=== PATIENT | male | born 1960 | race African-American/Black ===

== ENCOUNTER 2017-10-31 00:32 | Emergency (ER) | payer MEDICAID ==
[~2017-10-31] VITALS: Ht 182.9 cm; Wt 136.0 kg
[~2017-10-31 00:32] MED LIST: ACET-3161 PO; AMLO10TA80 PO; ASPI-1159 PO; ATOR20TA65 PO; CLOP75TA33 PO; LISI10TA5 PO; METO-539 PO; NITR0.4T49 SL
[2017-10-31] MEDS ORDERED: IBUPROFEN 600MG TABLET PO ONE (07:15)
[2017-10-31 11:47] VITALS: BP 125/72
== END 2017-10-31 12:14 | disposition home or self-care (01) ==
LOC: ER 00:32
DX: S93.402A Sprain of unspecified ligament of left ankle, initial encounter (principal); W01.0XXA Fall on same level from slipping, tripping and stumbling without subsequent striking against object, initial encounter; Y93.02 Activity, running; Y92.9 Unspecified place or not applicable; E78.00 Pure hypercholesterolemia, unspecified; I10 Essential (primary) hypertension; Z88.0 Allergy status to penicillin; Z79.82 Long term (current) use of aspirin
CPT/HCPCS: 73590; 99284

== ENCOUNTER 2018-07-28 22:58 | Inpatient (IN) | payer MEDICAID ==
[~2018-07-28] VITALS: Ht 182.9 cm; Wt 132.6 kg
[~2018-07-28 22:58] MED LIST changes: +HEPARIN SODIUM 1,000 UNIT/1ML VIAL IV ONE
[2018-07-29] MEDS ORDERED: NITROGLYCERIN 0.4MG TABLET SL SL PRN
[2018-07-29] MEDS ORDERED: ASPIRIN 81MG TABLET PO ONE
[2018-07-29] MEDS ORDERED: CLONIDINE 0.2MG TABLET PO ONE
[2018-07-29 00:50] LABS: EOSINOPHILS % 1.5 % (0.0-5.0); HEMOGLOBIN. 14.6 g/dL (14.0-18.0); LYMPHOCYTES % 48.7 % (20.0-50.0); MEAN CORPUSCULAR HEMOGLOBIN 28.7 pg (28.0-32.0); MEAN CORPUSCULAR VOLUME 86.5 fL (80.0-94.0); MONOCYTES % 7.4 % (2.0-8.0); NEUTROPHILS % 41.4 % (40.0-76.0); PLATELET 251 x1000/uL (130-400); RED BLOOD CELL COUNT 5.08 mill/uL (4.7-6.1)
[2018-07-29 01:06] LABS: D-DIMER 0.37 mg/L FEU (<0.50); PARTIAL THROMBOPLASTIN TIME 24.8 sec (23.4-31.0); PROTHROMBIN TIME 9.8 sec (9.1-11.1)
[2018-07-29 01:08] LABS: CHLORIDE 105 mEq/L (98-107)
[2018-07-29 01:12] LABS: ETHANOL BLOOD < 10 mg/dL
[2018-07-29] MEDS ORDERED: HYDRALAZINE 20MG/ML VIAL IV ONE (01:45)
[2018-07-29] MEDS ORDERED: ENOXAPARIN 150MG/ML SYR SUBCUT ONE (01:45)
[2018-07-29] MEDS ORDERED: SODIUM BICARBONATE 8.4% 1 MEQ/ML 50ML SYR IV ONE (01:45)
[2018-07-29 10:14] VITALS: BP 173/100
[2018-07-29 10:24] VITALS: BP 173/100
[2018-07-29 12:00] VITALS: BP 142/90
[2018-07-29] MEDS ORDERED: ONDANSETRON HCL 4MG/2ML INJ IV PRN (12:45)
[2018-07-29] MEDS ORDERED: CLONIDINE 0.1MG TABLET PO PRN (12:45)
[2018-07-29] MEDS ORDERED: LORAZEPAM 0.5MG TABLET PO PRN (12:45)
[2018-07-29] MEDS ORDERED: DOCUSATE SODIUM 100MG CAPSULE PO PRN (12:45)
[2018-07-29] MEDS ORDERED: IPRATROPIUM/ALBUTEROL 0.5-3(2.5)MG/3ML NEB INH PRN (12:45)
[2018-07-29] MEDS ORDERED: ASPIRIN 81MG TABLET PO SCH (12:45)
[2018-07-29] MEDS: LISINOPRIL 10MG TABLET PO SCH (13:38)
[2018-07-29] MEDS: CLOPIDOGREL 75MG TABLET PO SCH (13:38)
[2018-07-29] MEDS: AMLODIPINE 10MG TABLET PO SCH (13:38)
[2018-07-29] MEDS ORDERED: CLONIDINE 0.2MG TABLET PO PRN (14:15)
[2018-07-29 16:00] VITALS: BP 166/83
[2018-07-29] MEDS ORDERED: SODIUM POLYSTYRENE SULFONATE 15 G/60 ML BOT PO NR (16:00)
[2018-07-29 16:30] VITALS: BP 145/83
[2018-07-29 20:00] VITALS: BP 143/78
[2018-07-29] MEDS: ACETAMINOPHEN 325MG TABLET PO PRN (21:13)
[2018-07-29] MEDS: ATORVASTATIN CALCIUM 20MG TABLET PO SCH (21:13)
[2018-07-30] VITALS: BP 149/86
[2018-07-30 04:00] VITALS: BP 135/88
[2018-07-30] MEDS: ACETAMINOPHEN 325MG TABLET PO PRN (05:46)
[2018-07-30 05:57] LABS: BASOPHILS % 0.7 % (0.0-2.0); EOSINOPHILS % 1.4 % (0.0-5.0); HEMATOCRIT. 44.9 % (42.0-52.0); LYMPHOCYTES % 51.2 % (20.0-50.0); MEAN CORPUSCULAR HEMOGLOBIN 28.7 pg (28.0-32.0); MEAN CORPUSCULAR VOLUME 85.9 fL (80.0-94.0); MEAN PLATELET VOLUME 8.5 fl (7.4-10.4); MONOCYTES % 7.6 % (2.0-8.0); NEUTROPHILS % 39.1 % (40.0-76.0); PLATELET 254 x1000/uL (130-400); RED BLOOD CELL COUNT 5.22 mill/uL (4.7-6.1); RED CELL DISTRIBUTION WIDTH 14.2 % (11.6-14.6)
[2018-07-30 06:19] LABS: CHLORIDE 105 mEq/L (98-107)
[2018-07-30 06:35] LABS: PHOSPHORUS 3.8 mg/dL (2.5-4.9)
[2018-07-30 06:38] LABS: CREATINE KINASE 258 IU/L (39-308)
[2018-07-30 08:00] VITALS: BP 121/61
[2018-07-30] MEDS: CLOPIDOGREL 75MG TABLET PO SCH (08:55)
[2018-07-30] MEDS: LISINOPRIL 10MG TABLET PO SCH (08:55)
[2018-07-30] MEDS: ASPIRIN 81MG EC TABLET PO SCH (08:55)
[2018-07-30] MEDS: AMLODIPINE 10MG TABLET PO SCH (08:55)
[2018-07-30] MEDS ORDERED: REGADENOSON 0.4 MG/5 ML IV ONE (11:45)
[2018-07-30 12:00] VITALS: BP 115/71
[2018-07-30 16:00] VITALS: BP 114/57
[2018-07-30 20:00] VITALS: BP 132/67
[2018-07-30] MEDS: ATORVASTATIN CALCIUM 20MG TABLET PO SCH (20:29)
[2018-07-31] VITALS (8 sets, daily range): BP systolic 129–177; BP diastolic 68–97
[2018-07-31] LABS: CLARITY URINE CLEAR (CLEAR); COLOR URINE YELLOW (YELLOW); KETONES URINE NEGATIVE (NEGATIVE); LEUKOCYTE ESTERASE URINE NEGATIVE (NEGATIVE); NITRITE URINE NEGATIVE (NEGATIVE); OCCULT BLOOD URINE NEGATIVE (NEGATIVE); PH URINE 5.5 (4.5-8.0); PROTEIN URINE NEGATIVE (NEGATIVE); SPECIFIC GRAVITY URINE 1.013 (1.005-1.030); UROBILINOGEN URINE 0.2 E.U./dL (0.2-1.0)
[2018-07-31] MEDS: HYDROCODONE/ACETAMINOPHEN 5/325MG TABLET PO PRN ×2 (05:04→14:45)
[2018-07-31 08:07] LABS: BASOPHILS % 0.5 % (0.0-2.0); EOSINOPHILS % 1.3 % (0.0-5.0); HEMATOCRIT. 43.8 % (42.0-52.0); HEMOGLOBIN. 14.4 g/dL (14.0-18.0); LYMPHOCYTES % 44.4 % (20.0-50.0); MEAN CORPUSCULAR HEMOGLOBIN 28.5 pg (28.0-32.0); MEAN CORPUSCULAR VOLUME 86.7 fL (80.0-94.0); MEAN PLATELET VOLUME 8.6 fl (7.4-10.4); MONOCYTES % 7.8 % (2.0-8.0); PLATELET 246 x1000/uL (130-400); RED BLOOD CELL COUNT 5.06 mill/uL (4.7-6.1); RED CELL DISTRIBUTION WIDTH 14.4 % (11.6-14.6)
[2018-07-31 08:17] LABS: CHLORIDE 104 mEq/L (98-107)
[2018-07-31] MEDS ORDERED: REGADENOSON 0.4 MG/5 ML IV ONE (08:38)
[2018-07-31] MEDS: ASPIRIN 81MG EC TABLET PO SCH (10:02)
[2018-07-31] MEDS: LISINOPRIL 10MG TABLET PO SCH ×2 (10:03→21:07)
[2018-07-31] MEDS: AMLODIPINE 10MG TABLET PO SCH (10:03)
[2018-07-31] MEDS: CLOPIDOGREL 75MG TABLET PO SCH (10:07)
[2018-07-31] MEDS ORDERED: ENOXAPARIN 150MG/ML SYR SUBCUT SCH (11:30)
[2018-07-31] MEDS: CARVEDILOL 6.25 MG TABLET PO SCH ×2 (13:21→21:07)
[2018-07-31] MEDS ORDERED: ATORVASTATIN CALCIUM 20MG TABLET PO SCH (21:00)
[2018-07-31] MEDS: ATORVASTATIN CALCIUM 40MG TABLET PO SCH (21:07)
[2018-08-01] VITALS (9 sets, daily range): BP systolic 124–156; BP diastolic 71–90
[2018-08-01] MEDS: HYDROCODONE/ACETAMINOPHEN 5/325MG TABLET PO PRN (00:52)
[2018-08-01 06:53] LABS: BASOPHILS % 0.5 % (0.0-2.0); EOSINOPHILS % 0.9 % (0.0-5.0); HEMATOCRIT. 44.1 % (42.0-52.0); HEMOGLOBIN. 14.7 g/dL (14.0-18.0); LYMPHOCYTES % 44.5 % (20.0-50.0); MEAN CORPUSCULAR HEMOGLOBIN 28.9 pg (28.0-32.0); MEAN CORPUSCULAR VOLUME 86.7 fL (80.0-94.0); MEAN PLATELET VOLUME 8.3 fl (7.4-10.4); MONOCYTES % 9.9 % (2.0-8.0); NEUTROPHILS % 44.2 % (40.0-76.0); PLATELET 250 x1000/uL (130-400); RED BLOOD CELL COUNT 5.08 mill/uL (4.7-6.1); RED CELL DISTRIBUTION WIDTH 14.4 % (11.6-14.6)
[2018-08-01] MEDS: CLOPIDOGREL 75MG TABLET PO SCH (09:00)
[2018-08-01] MEDS: ASPIRIN 81MG EC TABLET PO SCH (09:00)
[2018-08-01] MEDS: LISINOPRIL 10MG TABLET PO SCH ×2 (09:01→21:18)
[2018-08-01] MEDS: AMLODIPINE 10MG TABLET PO SCH (09:01)
[2018-08-01] MEDS: CARVEDILOL 6.25 MG TABLET PO SCH ×2 (09:01→21:18)
[2018-08-01] MEDS ORDERED: LIDOCAINE HCL 1% 20ML VIAL (Pyxis) INJ ONE (12:27)
[2018-08-01] MEDS ORDERED: IODIXANOL 320MG/ML 100 ML BOTTLE IV ONE ×2 (12:27→13:11)
[2018-08-01] MEDS ORDERED: IOHEXOL-300 100 ML BOTTLE ONE (12:27)
[2018-08-01] MEDS ORDERED: MIDAZOLAM HCL 2 MG/2 ML VIAL ONE (12:28)
[2018-08-01] MEDS ORDERED: FENTANYL CITRATE/PF 50MCG/ML 2ML VIAL ONE (12:28)
[2018-08-01 12:35] LABS: CHLORIDE 105 mEq/L (98-107)
[2018-08-01] MEDS ORDERED: CLOPIDOGREL 75MG TABLET ONE (13:21)
[2018-08-01] MEDS ORDERED: ASPIRIN 325MG TABLET ONE (13:21)
[2018-08-01] MEDS ORDERED: ACETAMINOPHEN 325MG TABLET PO PRN (13:30)
[2018-08-01] MEDS ORDERED: ATROPINE SULFATE 1MG/10ML SYR IV PRN (13:30)
[2018-08-01] MEDS ORDERED: HEPARIN SODIUM 1,000 UNIT/1ML VIAL IV ONE (15:07)
[2018-08-01] MEDS ORDERED: NITROGLYCERIN 50MCG/ML 10ML VIAL (CATH LAB) IV ONE (15:18)
[2018-08-01] MEDS ORDERED: NICARDIPINE 100MCG/ML 10ML VIAL (CATH LAB) IV ONE (15:18)
[2018-08-01] MEDS: ACETAMINOPHEN 325MG TABLET PO PRN (17:29)
[2018-08-01] MEDS: ATORVASTATIN CALCIUM 40MG TABLET PO SCH (21:19)
[2018-08-02] VITALS (8 sets, daily range): BP systolic 110–140; BP diastolic 63–89
[2018-08-02] MEDS: ACETAMINOPHEN 325MG TABLET PO PRN (03:27)
[2018-08-02] MEDS: ASPIRIN 81MG EC TABLET PO SCH (08:21)
[2018-08-02] MEDS: CLOPIDOGREL 75MG TABLET PO SCH (08:21)
[2018-08-02] MEDS: AMLODIPINE 10MG TABLET PO SCH (08:23)
[2018-08-02] MEDS: LISINOPRIL 10MG TABLET PO SCH (08:23)
[2018-08-02] MEDS: CARVEDILOL 6.25 MG TABLET PO SCH (08:23)
[2018-08-02 09:40] LABS: BASOPHILS % 0.2 % (0.0-2.0); EOSINOPHILS % 0.8 % (0.0-5.0); HEMATOCRIT. 43.8 % (42.0-52.0); HEMOGLOBIN. 14.3 g/dL (14.0-18.0); LYMPHOCYTES % 38.9 % (20.0-50.0); MEAN CORPUSCULAR HEMOGLOBIN 28.3 pg (28.0-32.0); MEAN CORPUSCULAR VOLUME 86.9 fL (80.0-94.0); MEAN PLATELET VOLUME 8.5 fl (7.4-10.4); NEUTROPHILS % 53.1 % (40.0-76.0); PLATELET 257 x1000/uL (130-400); RED BLOOD CELL COUNT 5.04 mill/uL (4.7-6.1)
[2018-08-02 09:47] LABS: CHLORIDE 104 mEq/L (98-107)
[2018-08-02] MEDS ORDERED: LIP40 PO (11:53)
[2018-08-02] MEDS ORDERED: COR6 PO (11:53)
[2018-08-02] MEDS ORDERED: LISI10TA5 PO (11:53)
== END 2018-08-02 16:15 | disposition home or self-care (01) | DRG 174 ==
LOC: ER 22:58 → 7WST 07-29 01:38 → EDBEDREQ 07-29 01:41 → ENRESERV 07-29 07:27 → 3WST 08-01 14:35
PROVIDERS: ADMIT Internal Medicine; ATTEND Internal Medicine
PROC: 4A023N7 Measurement of Cardiac Sampling and Pressure, Left Heart, Percutaneous Approach (ICD-10-PCS; principal; 2018-08-01)
PROC: 027034Z Dilation of Coronary Artery, One Artery with Drug-eluting Intraluminal Device, Percutaneous Approach (ICD-10-PCS; 2018-08-01)
PROC: B211YZZ Fluoroscopy of Multiple Coronary Arteries using Other Contrast (ICD-10-PCS; 2018-08-01)
DX: I21.4 Non-ST elevation (NSTEMI) myocardial infarction (principal); I11.9 Hypertensive heart disease without heart failure; E66.01 Morbid (severe) obesity due to excess calories; E11.9 Type 2 diabetes mellitus without complications; E87.5 Hyperkalemia; I16.1 Hypertensive emergency; Z68.41 Body mass index [BMI] 40.0-44.9, adult; Z71.3 Dietary counseling and surveillance; I16.0 Hypertensive urgency; I25.10 Atherosclerotic heart disease of native coronary artery without angina pectoris; Z91.14 Patient's other noncompliance with medication regimen; Z88.0 Allergy status to penicillin; E78.5 Hyperlipidemia, unspecified; I25.2 Old myocardial infarction; Z95.5 Presence of coronary angioplasty implant and graft; Z79.84 Long term (current) use of oral hypoglycemic drugs; E78.00 Pure hypercholesterolemia, unspecified; Z79.82 Long term (current) use of aspirin; Z91.19 Patient's noncompliance with other medical treatment and regimen
CPT/HCPCS: 36415; 71045; 78452; 80048; 80061; 82550; 82553; 82962; 83036; 83735; 83880; 84100; 84132; 84443; 84484; 85379; 92928; 93005; 93017; 93306; 93458; 93970; 96372; 96374; 96375; 99291; A9500; C1760; C1769; C1874; C1887; C1893; G0482; J0360; J1644; J1650; J2250; J2785; J3010; J3490; Q9967

== ENCOUNTER 2020-02-10 03:36 | Inpatient (IN) | payer MEDICAID, OTHER ==
[~2020-02-10] VITALS: Ht 182.9 cm; Wt 115.7 kg
[~2020-02-10 03:36] MED LIST changes: -ASPI-1159 PO; +ASPI-1497 PO; -ATOR20TA65 PO; +COR6 PO; -HEPARIN SODIUM 1,000 UNIT/1ML VIAL IV ONE; +LIP40 PO; -METO-539 PO
[2020-02-10] MEDS ORDERED: ASPIRIN 81MG TABLET PO ONE (05:15)
[2020-02-10 05:17] LABS: BASOPHILS % 0.5 % (0.0-2.0); EOSINOPHILS % 0.8 % (0.0-5.0); HEMATOCRIT. 41.5 % (42.0-52.0); HEMOGLOBIN. 13.9 g/dL (14.0-18.0); LYMPHOCYTES % 26.4 % (20.0-50.0); MEAN CORPUSCULAR HEMOGLOBIN 29.1 pg (28.0-32.0); MEAN CORPUSCULAR VOLUME 87.3 fL (80.0-94.0); MEAN PLATELET VOLUME 8.8 fl (7.4-10.4); MONOCYTES % 6.5 % (2.0-8.0); NEUTROPHILS % 65.8 % (40.0-76.0); PLATELET 258 x1000/uL (130-400); RED BLOOD CELL COUNT 4.76 mill/uL (4.7-6.1); RED CELL DISTRIBUTION WIDTH 14.3 % (11.6-14.6)
[2020-02-10 05:20] LABS: CHLORIDE 105 mEq/L (98-107)
[2020-02-10] MEDS: NITROGLYCERIN 0.4MG TABLET SL SL PRN ×2 (05:35→05:45)
[2020-02-10] MEDS ORDERED: ACETAMINOPHEN 325MG TABLET PO PRN (09:30)
[2020-02-10] MEDS ORDERED: CLONIDINE 0.1MG TABLET PO PRN (09:30)
[2020-02-10] MEDS ORDERED: DIPHENHYDRAMINE 50MG/ML VIAL IV PRN (09:30)
[2020-02-10] MEDS ORDERED: IPRATROPIUM/ALBUTEROL 0.5-3(2.5)MG/3ML NEB HHN PRN (09:30)
[2020-02-10] MEDS ORDERED: ENOXAPARIN 40MG/0.4ML SYR SUBCUT SCH (09:30)
[2020-02-10] MEDS ORDERED: ONDANSETRON HCL 4MG/2ML INJ IV PRN (09:30)
[2020-02-10] MEDS ORDERED: MORPHINE SULFATE 2 MG/ML CPJ (NOT FOR IM USE) IV PRN (09:30)
[2020-02-10] MEDS: ASPIRIN 81MG EC TABLET PO SCH (15:41)
[2020-02-10] MEDS: AMLODIPINE 10MG TABLET PO SCH (15:42)
[2020-02-10 15:53] VITALS: BP 135/71
[2020-02-10 16:00] VITALS: BP 135/82
[2020-02-10 18:34] LABS: CREATINE KINASE MB FRACTION < 1.0 ng/mL (0.5-3.6)
[2020-02-10 18:45] LABS: CREATINE KINASE 324 IU/L (39-308)
[2020-02-10 20:00] VITALS: BP 151/80
[2020-02-10] MEDS: LISINOPRIL 10MG TABLET PO SCH (20:56)
[2020-02-10] MEDS: ENOXAPARIN 30MG/0.3ML SYR SUBCUT SCH (20:56)
[2020-02-10] MEDS ORDERED: ATORVASTATIN CALCIUM 40MG TABLET PO SCH (21:00)
[2020-02-11] VITALS: BP 129/77
[2020-02-11 00:07] LABS: CREATINE KINASE 276 IU/L (39-308); CREATINE KINASE MB FRACTION 1.1 ng/mL (0.5-3.6)
[2020-02-11 04:00] VITALS: BP 143/70
[2020-02-11 07:26] LABS: BASOPHILS % 0.5 % (0.0-2.0); EOSINOPHILS % 1.7 % (0.0-5.0); HEMATOCRIT. 39.7 % (42.0-52.0); HEMOGLOBIN. 13.4 g/dL (14.0-18.0); LYMPHOCYTES % 48.6 % (20.0-50.0); MEAN CORPUSCULAR HEMOGLOBIN 29.1 pg (28.0-32.0); MEAN CORPUSCULAR VOLUME 86.2 fL (80.0-94.0); MEAN PLATELET VOLUME 8.2 fl (7.4-10.4); MONOCYTES % 9.8 % (2.0-8.0); NEUTROPHILS % 39.4 % (40.0-76.0); PLATELET 219 x1000/uL (130-400)
[2020-02-11 08:00] VITALS: BP 133/82
[2020-02-11 08:20] LABS: CHLORIDE 108 mEq/L (98-107)
[2020-02-11 08:32] LABS: LDL CHOLESTEROL 94 mg/dL (5-100)
[2020-02-11 08:33] LABS: HDL CHOLESTEROL 36 mg/dL (40-59)
[2020-02-11] MEDS: LISINOPRIL 10MG TABLET PO SCH (08:54)
[2020-02-11] MEDS: ASPIRIN 81MG EC TABLET PO SCH (08:54)
[2020-02-11] MEDS: ENOXAPARIN 30MG/0.3ML SYR SUBCUT SCH (08:55)
[2020-02-11] MEDS: AMLODIPINE 10MG TABLET PO SCH (08:55)
[2020-02-11] MEDS ORDERED: CLOPIDOGREL 75MG TABLET PO SCH (11:00)
[2020-02-11 12:00] VITALS: BP 135/83
[2020-02-11 12:16] VITALS: BP 135/83
== END 2020-02-11 17:35 | disposition home or self-care (01) | DRG 206 ==
LOC: ER 03:36 → ENRESERV 12:34 → 8WST 13:40
PROVIDERS: ADMIT Internal Medicine; ATTEND Internal Medicine
DX: M94.0 Chondrocostal junction syndrome [Tietze] (principal); I25.10 Atherosclerotic heart disease of native coronary artery without angina pectoris; J45.909 Unspecified asthma, uncomplicated; I10 Essential (primary) hypertension; F17.200 Nicotine dependence, unspecified, uncomplicated; E78.5 Hyperlipidemia, unspecified; R47.81 Slurred speech; E66.9 Obesity, unspecified; Z95.5 Presence of coronary angioplasty implant and graft; Z79.82 Long term (current) use of aspirin; Z88.0 Allergy status to penicillin; Z79.1 Long term (current) use of non-steroidal anti-inflammatories (NSAID); Z79.899 Other long term (current) drug therapy; Z68.34 Body mass index [BMI] 34.0-34.9, adult; E83.51 Hypocalcemia
CPT/HCPCS: 36415; 71045; 80053; 80061; 82550; 82553; 83735; 83880; 84100; 84443; 84484; 85025; 93005; 93970; 99285; J1650